=== PATIENT | female | born 1985 | race Caucasian/White ===

== ENCOUNTER 2017-04-20 08:22 | Emergency (ER) ==
[2017-04-20 08:35] VITALS: BP 109/88; TEMP 96; BMI 6186.4
[2017-04-20] MEDS: ZOFRAN ODT PO STA (08:35)
--- NOTE | 2017-04-20 08:35 | ED.PDOC ---
General ED Provider: Dr. FABIO DAVE Stated Complaint: Left side back, kidney pain. Started early this morning. Never had before Time Seen by Physician: 08:25 Mode of Arrival: Wheelchair Information Source: Patient, Family Exam Limitations: Clinical condition (Crying with pain) Nursing and Triage Documentation Reviewed and Agree: Yes Reviewed sepsis parameters & appropriate labs ordered?: Yes System Inflammatory Response Syndrome: Not Applicable Sepsis Protocol: For patient's 13 years and over: Temp is 96.8 and below OR 101 and greater Pulse >90 BPM Resp >20/minute Acutely Altered Mental Status Are patient's symptoms suggestive of a new infection, such as: -Pneumonia -Skin, Soft Tissue -Endocarditis -UTI -Bone, Joint Infection -Implantable Device -Acute Abdominal Infection -Wound Infection -Meningitis -Blood Stream Catheter Infection -Unknown Review of Systems - Review Of Systems Constitutional: Reports: No symptoms GI: Reports: Nausea, Vomiting : Reports: No symptoms Skin: Reports: No symptoms All Other Systems: Reviewed and Negative Past Medical History - Past Medical History Previously Healthy: Yes Endocrine: Reports: None Cardiovascular: Reports: None Respiratory: Reports: None Hematological: Reports: None Gastrointestinal: Reports: None Genitourinary: Reports: None Neuro/Psych: Reports: None Musculoskeletal: Reports: None Cancer: Reports: None - Surgical History General Surgical History: Reports: Hysterectomy - Family History Family History: Reports: None Physical Exam - Physical Exam Appearance: Well-appearing Ill-appearing: Mild Pain Distress: Moderate Eyes: JELLY, EOMI Neck: Supple Respiratory: Airway patent, Breath sounds clear, Breath sounds equal Cardiovascular: RRR, Pulses normal GI/: Soft, Nontender, Bowel sounds normal Musculoskeletal: Normal strength Skin: Warm, Dry, Normal color Neurological: Sensation intact, Motor intact, Alert, Oriented Psychiatric: Affect appropriate, Mood appropriate Interpretation - Radiology Interpretation Radiology Interpretation By: Radiologist Exam Interpreted: CT Scan (Abdomen/Pelvis renal protocol) Xray Comments: calculus L UPJ Re-Evaluation - Re-Evaluation Time of Re-Evaluation: 09:53 Status: Improved Vital Signs Stable: Yes Appearance: NAD Skin: Warm and Dry Neuro: Alert and Oriented X3 Critical Care Note - Critical Care Note Total Time (mins): 15 Course - Course Orders, Labs, Meds: Orders Category Date Time Status URINALYSIS C & S IF INDICATED Stat LAB 04/20/17 08:37 Uncollected Ketorolac Tromethamine [Toradol] MEDS 04/20/17 08:27 Discontinued 30 mg IVP ONCE STA Ondansetron HCl/Pf [Zofran 4 mg/2 ml] MEDS 04/20/17 08:32 Discontinued 4 mg .ROUTE .STK-MED ONE Ondansetron [Zofran Odt] MEDS 04/20/17 08:29 Discontinued 4 mg PO ONCE STA Sodium Chloride 0.9% [Sodium Chloride] 1,000 ml MEDS 04/20/17 08:[address] ABD/PEL WO RENAL STONE PROT Stat RADS 04/20/17 08:34 Completed Medications Discontinued Medications Generic Name Dose Route Start Last Admin Trade Name Freq PRN Reason Stop Dose Admin Sodium Chloride 1,000 mls @ 1,000 mls/hr 04/20/17 08:35 04/20/17 08:43 Sodium Chloride IV 04/20/17 09:34 1,000 mls/hr BOLUS STA Administration Ketorolac Tromethamine 30 mg 04/20/17 08:27 04/20/17 08:38 Toradol IVP 04/20/17 08:28 30 mg ONCE STA Administration Ondansetron HCl 4 mg 04/20/17 08:29 04/20/17 08:35 Zofran Odt PO 04/20/17 08:30 Not Given ONCE STA Vital Signs: Temp Pulse Resp BP Pulse Ox 04/20/17 08:25 96.0 F L 72 20 109/88 98 Departure - Departure Time of Disposition: 10:15 Disposition: HOME SELF-CARE Discharge Problem: Renal stone, Renal calculus, left Instructions: Kidney Stones (ED) Condition: Good Pt referred to PMD for follow-up: Yes (Follow up with primary care or urologist) IPMP verified?: No (No narcotic prescribed) Additional Instructions: Use Ibuprofen 800 mg with food every 6 to 8 hours as needed for pain; phenergan for nausea. Keep well hydrated. Follow up with urology or primary care. Prescriptions: Promethazine HCl [Phenergan Tab] 25 mg PO Q6H #10 tablet Allergies/Adverse Reactions: Allergies aspirin Adverse Reaction (Verified 04/20/17 08:45) Latex, Natural Rubber Adverse Reaction (Unverified 04/20/17 08:50) Home Medications: Ambulatory Orders Multivitamin [Multiple Vitamins] 1 each PO DAILY 04/20/17 Promethazine HCl [Phenergan Tab] 25 mg PO Q6H #10 tablet 04/20/17 Disposition Discussed With: Patient
[2017-04-20] MEDS: ZOFRAN 4 MG/2 ML ONE (08:36)
[2017-04-20] MEDS: TORADOL IVP STA (08:38)
[2017-04-20] MEDS: SODIUM CHLORIDE 1,000 ML IV STA (08:43)
--- NOTE | 2017-04-20 09:42 | CT ---
EXAM: CT ABDOMEN AND PELVIS HISTORY: Renal stones TECHNIQUE: CT abdomen and pelvis without intravenous contrast. Images were reconstructed using 3 mm section thickness. Reformations were prepared. COMPARISON: None FINDINGS: There is a calculus lodged at the left ureteropelvic junction measuring 3.6 x 3.6 x 3.2 mm. There is subtle hydronephrosis. A punctate calcification remains within the left kidney likely a stone. The kidneys and ureters as well as the urinary bladder were otherwise unremarkable. No perinephric fat s tranding. Within limits of this unenhanced exam, the liver and spleen were normal. Gallbladder, pancreas and a drenal glands appear normal. Normal abdominal aorta. Stomach and appendix are normal. Unremarkable bowel gas pattern. No uterus is seen. There is a small cystic mass in the right adnexa measuring 2. 2 cm. No ascites or inflammatory infiltration of the abdominal fat. There is a fatty umbilical herni a with a transverse neck of about 1.5 cm likely of no current clinical significance. The bones are w ithin normal limits. Lung bases are clear and there is no pneumoperitoneum. IMPRESSION: 1. There is a calculus lodged at the left ureteropelvic junction measuring 3.6 x 3.6 x 3.2 mm. There is subtle hydronephrosis. 2. Right adnexal cystic mass measuring 2.2 cm apparently on the ovary. This is most consistent with a dominant ovarian follicle.
== END 2017-04-20 10:15 | disposition home or self-care (01) ==
LOC: ED 08:22
DX: N20.0 Calculus of kidney (principal); R11.2 Nausea with vomiting, unspecified
CPT/HCPCS: 74176; 96361; 96374; 96375; 99283